=== PATIENT | female | born 1930 | race Caucasian/White ===

== ENCOUNTER 2016-10-05 07:05 | Emergency (ER) | payer MEDICARE, MEDICAID ==
[2016-10-05 07:18] VITALS: TEMP 97.6; O2SAT 97
--- NOTE | 2016-10-05 07:24 | ED.PDOC ---
History of Present Illness - General Chief Complaint: Trauma Stated Complaint: fall Time Seen by Provider: 10/05/16 07:09 Source: patient, RN notes reviewed, Vital Signs reviewed, EMS Exam Limitations: no limitations - History of Present Illness Initial Comments: Patient reports she got up to go to the bathroom, lost her balance and feel. Reports she hit her head on the icebox. She thinks everything else she hit was soft. She is having L lower rib pain that is worse with breathing and movement. No LOC. Timing/Duration: 1/2 hour Severity: moderate Improving Factors: immobilization Worsening Factors: movement Associated Symptoms: chest pain, headaches Allergies/Adverse Reactions: Allergies Ciprofloxacin [From Cipro] Allergy (Severe, Verified 08/17/16 16:57) Other swelling of lips Cephalosporins Allergy (Unknown, Verified 08/17/16 16:57) Unknown Codeine Allergy (Unknown, Verified 08/17/16 16:57) Unknown Acetazolamide [From Diamox Sequels] Allergy (Verified 08/17/16 16:57) Vomitting Ceftriaxone Allergy (Verified 10/05/16 07:19) Penicillins Allergy (Verified 10/05/16 07:19) Home Medications: Ambulatory Orders Donepezil Hydrochloride [Aricept] 10 mg PO BEDTIME 03/03/16 Levothyroxine Sodium [Synthroid] 75 mcg PO ACBK 03/03/16 Pramipexole Dihydrochloride [Mirapex] 0.25 mg PO BEDTIME 03/03/16 Pantoprazole Sodium 40 mg PO DAILY 05/23/16 Magnesium Hydroxide [Milk Of Magnesia] 30 ml PO DAILY PRN 08/22/16 Ondansetron HCl [Zofran] 4 mg PO Q6HR PRN 08/22/16 Tramadol HCl [Ultram] 50 mg PO Q4H PRN #60 tab 08/24/16 amLODIPine BESYLATE [Norvasc] 5 mg PO BEDTIME #30 tab 08/24/16 Citalopram Hydrobromide 10 mg PO DAILY 10/05/16 Review of Systems - Review of Systems Constitutional: States: no symptoms reported. Denies: chills, diaphoresis, fever, malaise, weakness EENTM: States: no symptoms reported Respiratory: States: short of breath - due to rib pain. Denies: cough, stridor , wheezing Cardiology: States: no symptoms reported Gastrointestinal/Abdominal: States: no symptoms reported Musculoskeletal: States: see HPI. Denies: neck pain Skin: States: no symptoms reported Neurological: States: headache. Denies: numbness, paresthesia, pre-existing deficit, seizure, tingling, tremors, weakness Endocrine: States: no symptoms reported Past Medical History (General) - Patient Medical History Hx Seizures: No Hx Stroke: Yes Hx Dementia: No Hx Asthma: No Hx of COPD: Yes Hx Cardiac Disorders: Yes - [place] Hx Congestive Heart Failure: Yes Hx Pacemaker: No Hx Hypertension: Yes - current Hx Thyroid Disease: Yes Hx Diabetes: No Hx Gastroesophageal Reflux: Yes Hx Renal Disease: No Hx Cancer: Yes - Uterine Hx of HIV: No Hx Hepatitis C: No Hx MRSA: No - Vaccination History Hx Tetanus, Diphtheria Vaccination: No Hx Influenza Vaccination: Yes Hx Pneumococcal Vaccination: Yes - Social History Hx Tobacco Use: Yes - Quit in 1983 Hx Chewing Tobacco Use: No Hx Alcohol Use: No Hx Substance Use: No Hx Substance Use Treatment: No Hx Depression: No Hx Physical Abuse: No Hx Emotional Abuse: No Hx Suspected Abuse: No - Activities of Daily Living Senior Living/Assisted Living (if applicable):: [facility] - Female History Patient : No Family Medical History - Family History Father Family History: Unknown Living Status: Mother Family History: Unknown Living Status: Physical Exam - Physical Exam General Appearance: Alert, Frail, Well Groomed, Well Hydrated, Other - In obvious pain Eye Exam: bilateral normal Ears, Nose, Throat: normal ENT inspection Neck: non-tender, full range of motion, supple, normal inspection Respiratory: lungs clear, decreased breath sounds, other - Chest wall tender over L lower ribs. Splinting and not breathing deeply due to pain. 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 Copy, Patient Portal Self Enrollment Instructions: DI for Rib Fracture, Contusion Activity: ambulate only with walker Home Medications: Ambulatory Orders Donepezil Hydrochloride [Aricept] 10 mg PO BEDTIME 03/03/16 Levothyroxine Sodium [Synthroid] 75 mcg PO ACBK 03/03/16 Pramipexole Dihydrochloride [Mirapex] 0.25 mg PO BEDTIME 03/03/16 Pantoprazole Sodium 40 mg PO DAILY 05/23/16 Magnesium Hydroxide [Milk Of Magnesia] 30 ml PO DAILY PRN 08/22/16 Ondansetron HCl [Zofran] 4 mg PO Q6HR PRN 08/22/16 Tramadol HCl [Ultram] 50 mg PO Q4H PRN #60 tab 08/24/16 amLODIPine BESYLATE [Norvasc] 5 mg PO BEDTIME #30 tab 08/24/16 Citalopram Hydrobromide 10 mg PO DAILY 10/05/16 Additional Instructions: Take Tramadol Q6 hours. Also, 10 deep breaths every hour to help prevent pneumonia.
--- NOTE | 2016-10-05 07:59 | CT ---
EXAM DESCRIPTION: CT HEAD WITHOUT IV CONTRAST CLINICAL HISTORY: 86 y/o F, Pain/hematoma s/p fall COMPARISON: August 22, 2016 TECHNIQUE: Head CT was performed without IV contrast. FINDINGS: There is no acute intracranial hemorrhage. Generalized age-appropriate volume loss is noted with ex vacuo prominence of the ventricular system. There is no posterior fossa lesion. Chronic ischemic changes are noted in the periventricular white matter, but there is no cortical edema or sulcal effacement to suggest acute cortical infarct. The basal ganglia are unremarkable. A cephalohematoma is noted over the right occipital parietal region. There is no calvarial fracture or radiopaque foreign body. Visualized paranasal sinuses unremarkable. Vascular calcifications are present. IMPRESSION: Right posterior soft tissue swelling, but no acute intracranial abnormality. Vascular calcifications, chronic ischemic changes and age appropriate volume loss. Electronically signed by: Fidel Bunn DO 10/05/2016 07:57
--- NOTE | 2016-10-05 08:02 | RAD ---
EXAM DESCRIPTION: XR CHEST 2 VIEWS CLINICAL HISTORY: L lower rib pain s/p fall COMPARISON: March 05, 2016 FINDINGS: The cardiomediastinal silhouette is unremarkable. There is subsegmental atelectasis or scarring in both lung bases, unchanged from the patient's previous exam. No pulmonary contusion or pleural fluid collection is seen. Mild chronic blunting of the left costophrenic angle is also stable from the prior exam and likely represents pleural thickening or scarring. Prominence of the retrosternal clear space suggests COPD. No displaced rib fracture or pneumothorax. IMPRESSION: COPD with probable subsegmental atelectasis or scarring in the lung bases, worse on the left side. No displaced rib fracture, pneumothorax or other traumatic intrathoracic abnormality. Electronically signed by: Fidel Bunn DO 10/05/2016 08:00
--- NOTE | 2016-10-05 08:03 | RAD ---
EXAM DESCRIPTION: XR RIBS 2 VIEWS UNILATERAL CLINICAL HISTORY: L lower rib pain s/p fall COMPARISON: None available FINDINGS: Three views of the left-sided ribs show no displaced left-sided rib fracture. There is subsegmental atelectasis or scarring in both lung bases. Vascular calcifications are noted. There are degenerative changes in the thoracolumbar spine at several levels including mild convex rightward scoliosis. IMPRESSION: Degenerative changes and vascular calcifications, but no apparent left-sided rib fracture or other acute intrathoracic abnormality. Electronically signed by: Fidel Bunn DO 10/05/2016 08:02
[2016-10-05] MEDS ORDERED: traMADol HCL 50 MG TAB PO ONE (08:20)
[2016-10-05] MEDS ORDERED: POVIDONE IODINE 10 % 15 ML UD TOP ONE (08:20)
[2016-10-05 08:57] VITALS: BP 186/84
== END 2016-10-05 08:57 ==
LOC: ER 07:05
DX: S00.03XA Contusion of scalp, initial encounter (principal); S22.32XA Fracture of one rib, left side, initial encounter for closed fracture; I25.2 Old myocardial infarction; J44.9 Chronic obstructive pulmonary disease, unspecified; I11.0 Hypertensive heart disease with heart failure; I50.9 Heart failure, unspecified; E07.9 Disorder of thyroid, unspecified; Z88.0 Allergy status to penicillin; Z88.3 Allergy status to other anti-infective agents; K21.9 Gastro-esophageal reflux disease without esophagitis; Z87.891 Personal history of nicotine dependence; Z85.42 Personal history of malignant neoplasm of other parts of uterus; Z79.899 Other long term (current) drug therapy; Z86.73 Personal history of transient ischemic attack (TIA), and cerebral infarction without residual deficits; Z88.6 Allergy status to analgesic agent; W19.XXXA Unspecified fall, initial encounter; Y92.009 Unspecified place in unspecified non-institutional (private) residence as the place of occurrence of the external cause

== ENCOUNTER → 2016-10-08 | Outpatient (CLI) | payer MEDICARE, MEDICAID | LOC: GMAJ 22:30 | PROVIDERS: ATTEND Family Medicine | DX: N39.0 Urinary tract infection, site not specified (principal) ==

== ENCOUNTER 2016-11-19 13:37 | Observation (INO) | payer MEDICARE, MEDICAID ==
[2016-11-19] MEDS ORDERED: ACETAMINOPHEN 325 MG TAB PO ONE (14:07)
[2016-11-19] MEDS ORDERED: IBUPROFEN 200 MG TAB PO ONE (14:07)
--- NOTE | 2016-11-19 14:37 | RAD ---
EXAM DESCRIPTION: Chest,1 View CLINICAL HISTORY: fever COMPARISON: October 05, 2016 FINDINGS: The cardiomediastinal silhouette is unremarkable. There is no airspace consolidation or pleural effusion. Subsegmental atelectasis or scarring is noted in the lung bases, stable. There is no pneumothorax or acute fracture. IMPRESSION: No acute findings. If symptoms persist or worsen, follow-up chest radiograph is suggested. Electronically signed by: Fidel Bunn MD 11/19/2016 2:37 PM IT COMPLIANCE ANALYST
--- NOTE | 2016-11-19 14:40 | RAD ---
EXAM DESCRIPTION: Wrist,Left 2 Views CLINICAL HISTORY: 86 years Female, pain and redness COMPARISON: None. FINDINGS: There is slight cortical offset involving the articular surface of the distal radius. No definite fracture plane is identified. The carpal bones are anatomically aligned. There is probable mild soft tissue swelling. Degenerative changes are noted at the first CMC and triscaphe joints. IMPRESSION: Questionable nondisplaced distal radial fracture of uncertain acuity. If clinically suspicious of acute fracture, 3 view wrist series or CT may be helpful for further evaluation. Degenerative changes, otherwise unremarkable exam. Electronically signed by: Fidel Bunn MD 11/19/2016 2:39 PM CROP INSURANCE CLAIMS ADJUSTER
--- NOTE | 2016-11-19 16:33 | ED.PDOC ---
History of Present Illness - General Chief Complaint: General Time Seen by Provider: 11/19/16 13:46 Source: patient Exam Limitations: no limitations - History of Present Illness Initial Comments: The patient is a 86-year-old female brought into the emergency room for long-term care facility secondary to mild altered mental status along with fever and pain in her left wrist and right foot. The patient historically has had multiple recurrent urinary tract infections. The patient does recognize her family members and knows the hospital that she's and gets confused with answering multiple other questions initially with the fever. No headache and no neck pain. No syncope. She apparently did have a fall a week or 2 ago. She was seen by her primary care doctor yesterday and started on azithromycin for what was felt to be a cellulitis on the dorsal aspect of her right foot. Family reports that the erythema to the dorsal aspect of her right foot does look better today. She has not been drinking well. No definite urinary symptoms but she does not normally have urinary symptoms with UTI. No palpitations. noChest pain. Timing/Duration: 24 hours Severity: moderate Worsening Factors: nothing Associated Symptoms: fever/chills, loss of appetite, malaise, weakness Allergies/Adverse Reactions: Allergies Ciprofloxacin [From Cipro] Allergy (Severe, Verified 08/17/16 16:57) Other swelling of lips Cephalosporins Allergy (Unknown, Verified 08/17/16 16:57) Unknown Codeine Allergy (Unknown, Verified 08/17/16 16:57) Unknown Acetazolamide [From Diamox Sequels] Allergy (Verified 08/17/16 16:57) Vomitting Ceftriaxone Allergy (Verified 10/05/16 07:19) Penicillins Allergy (Verified 10/05/16 07:19) Home Medications: Ambulatory Orders Donepezil Hydrochloride [Aricept] 10 mg PO BEDTIME 03/03/16 Levothyroxine Sodium [Synthroid] 75 mcg PO DAILY 03/03/16 Pramipexole Dihydrochloride [Mirapex] 0.25 mg PO BEDTIME 03/03/16 Pantoprazole Sodium 40 mg PO DAILY 05/23/16 Magnesium Hydroxide [Milk Of Magnesia] 30 ml PO DAILY PRN 08/22/16 Ondansetron HCl [Zofran] 4 mg PO Q6HR PRN 08/22/16 amLODIPine BESYLATE [Norvasc] 5 mg PO BEDTIME #30 tab 12/06/16 Citalopram Hydrobromide 10 mg PO DAILY 10/05/16 Memantine HCl-Donepezil HCl [Namzaric 7 & 14 & 21 &28 -10 mg] 1 cap PO DAILY 12/03 Tramadol HCl [Ultram] 50 mg PO Q6HR PRN 11/19/16 Review of Systems - Review of Systems Constitutional: States: fever, malaise, weakness EENTM: States: no symptoms reported Respiratory: States: cough - mild Cardiology: States: no symptoms reported Gastrointestinal/Abdominal: States: nausea - mild Genitourinary: States: no symptoms reported Musculoskeletal: States: muscle pain - generalized body aches Skin: States: see HPI Neurological: States: other - mild confusion here today. Poor focus. No headaches. She does have generalized weakness. Endocrine: States: no symptoms reported All other Systems: No Change from Baseline Past Medical History (General) - Patient Medical History Hx Seizures: No Hx Stroke: Yes Hx Dementia: No Hx Asthma: No Hx of COPD: Yes Hx Cardiac Disorders: Yes - [place] Hx Congestive Heart Failure: Yes Hx Pacemaker: No Hx Hypertension: Yes - current Hx Thyroid Disease: Yes Hx Diabetes: No Hx Gastroesophageal Reflux: Yes Hx Renal Disease: No Hx Cancer: Yes - Uterine Hx of HIV: No Hx Hepatitis C: No Hx MRSA: No - Vaccination History Hx Tetanus, Diphtheria Vaccination: No Hx Influenza Vaccination: Yes Hx Pneumococcal Vaccination: Yes - Social History Hx Tobacco Use: Yes - Quit in 1983 Hx Chewing Tobacco Use: No Hx Alcohol Use: No Hx Substance Use: No Hx Substance Use Treatment: No Hx Depression: No Hx Physical Abuse: No Hx Emotional Abuse: No Hx Suspected Abuse: No - Female History Patient : No Family Medical History - Family History Father Family History: Unknown Living Status: Mother Family History: Unknown Living Status: Physical Exam - Physical Exam General Appearance: Alert, No apparent distress, Other - mild confusion Eye Exam: bilateral normal Ears, Nose, Throat: normal ENT inspection, normal pharynx Neck: non-tender, full range of motion, supple, normal inspection Respiratory: chest non-tender, lungs clear, normal breath sounds, no respiratory distress, no accessory muscle use Cardiovascular/Chest: normal peripheral pulses, no edema, other - regular rate Peripheral Pulses: radial,right: 2+, radial,left: 2+, dorsalis pedis,right: 2+, dorsalis pedis,left: 2+ Gastrointestinal/Abdominal: non tender, soft Rectal Exam: deferred Back Exam: normal inspection Extremity: normal range of motion, no pedal edema, no calf tenderness, normal capillary refill, other - the patient does have erythema surrounding her left wrist and pain with palpation and with movement of the wrist. She is neurovascularly preserved distally. Neurologic: alert, other - mildly disoriented Skin Exam: normal color Progress - Progress Progress: 11/19/16 16:36 the patient is an 86-year-old female with a multitude of chronic medical problems presenting to the emergency room secondary to fever with associated delirium along with left wrist and right foot discomfort. The patient is mildly dehydrated and is going to receive some IV fluids. She is also going to be started on IV clindamycin as a broad-spectrum antibiotic. She may have the start of a small urinary tract infection based on the urinalysis. The patient is mentating normally after the fever is controlled. There is apparently a significant cellulitis of the right foot that does need to be followed. For now continue the azithromycin started by her primary care doctor. Monitor the patient overnight to make sure no new symptoms develop. Control fevers. It is possible that the fever may not be due to the issues listed above and further symptoms may develop to point to a different source. The patient is very frail and warrants monitoring for the next 24 hours to make sure she does not deteriorate. 11/19/16 16:47 - Results/Orders Results/Orders: Laboratory Tests 11/19/16 11/19/16 14:24 15:45 WBC 16.3 H RBC 4.28 Hgb 11.4 L Hct 36.7 MCV 85.8 MCH 26.6 L MCHC 31.2 L RDW 16.7 H Plt Count 300 MPV 9.6 Absolute Neuts (auto) Not Reportable Absolute Lymphs (auto) Not Reportable Absolute Monos (auto) Not Reportable Absolute Eos (auto) Not Reportable Neutrophils % Not Reportable Neutrophils % (Manual) 78.0 Lymphocytes % Not Reportable Lymphocytes % (Manual) 8.0 Monocytes % Not Reportable Monocytes % (Manual) 12.0 Eosinophils % Not Reportable Basophils % Not Reportable Band Neutrophils 1.0 Platelet Estimate Normal RBC Morphology Normal rbc morph PT 13.9 H INR 1.230 PTT (SP) 27.1 Sodium 137 Potassium 4.1 Chloride 103 Carbon Dioxide 24 Anion Gap 14.1 BUN 23 H Creatinine 1.20 BUN/Creatinine Ratio 19.2 Random Glucose 123 H Serum Osmolality 278.9 Calcium 9.0 Total Bilirubin 0.6 AST 17 ALT < 8 L Alkaline Phosphatase 76 Serum Total Protein 7.2 Albumin 3.6 Globulin 3.6 H Albumin/Globulin Ratio 1.0 L Urine Color Yellow Urine Appearance Cloudy Urine pH 5.5 Ur Specific [place] 1.025 Urine Protein 30 Urine Glucose (UA) Negative Urine Ketones Negative Urine Blood Negative Urine Nitrite Negative Urine Bilirubin Negative Urine Urobilinogen 1.0 Ur Leukocyte Esterase Negative Urine RBC 0 Urine WBC 3-5 H Ur Epithelial Cells 1-3 Amorphous Sediment 2+ Urine Bacteria 4+ H chest x-ray shows no definitive infiltrate. Rapid flu is negative. Departure - Departure Clinical Impression: Delirium due to another medical condition, Cystitis, Dehydration, mild Cellulitis Qualifiers: Site of cellulitis: extremity Site of cellulitis of extremity: lower extremity Laterality: right Qualifier Code: (L03.115) Cellulitis of right lower limb Fracture, radius Qualifiers: Encounter type: initial encounter Radius location: distal Fracture type: closed Fracture alignment: nondisplaced Laterality: left Disposition: Admit Patient Home Medications: Ambulatory Orders Donepezil Hydrochloride [Aricept] 10 mg PO BEDTIME 03/03/16 Levothyroxine Sodium [Synthroid] 75 mcg PO DAILY 03/03/16 Pramipexole Dihydrochloride [Mirapex] 0.25 mg PO BEDTIME 03/03/16 Pantoprazole Sodium 40 mg PO DAILY 05/23/16 Magnesium Hydroxide [Milk Of Magnesia] 30 ml PO DAILY PRN 08/22/16 Ondansetron HCl [Zofran] 4 mg PO Q6HR PRN 08/22/16 amLODIPine BESYLATE [Norvasc] 5 mg PO BEDTIME #30 tab 08/24/16 Citalopram Hydrobromide 10 mg PO DAILY 10/05/16 Memantine HCl-Donepezil HCl [Namzaric 7 & 14 & 21 &28 -10 mg] 1 cap PO DAILY 12/03 Tramadol HCl [Ultram] 50 mg PO Q6HR PRN 11/19/16 Decision To Admit - Decistion To Admit Decision to Admit Reason: Medical Nature Decision to Admit Date: 11/19/16 Decision to Admit Time: 16:52
[2016-11-19] MEDS ORDERED: SODIUM CHLORIDE 0.9% 1000ML 750 ML IVS ONE (16:47)
[2016-11-19] MEDS ORDERED: CLINDAMYCIN IV 600MG 600 MG in PREMIX BAG 1 BAG IVPB ONE (16:47)
[2016-11-19] MEDS ORDERED: CLINDAMYCIN IV 600MG 50 ML IVPB ONE (17:22)
--- NOTE | 2016-11-19 18:57 | HP ---
SUPERVISING PHYSICIAN: BRYAN WILBURN MD CHIEF COMPLAINT: FEVER HISTORY OF PRESENT ILLNESS: This is an 86 year-old female who was brought into the Emergency Room from [facility] for mild altered mental status along with fever. She also complained of some pain in her left wrist and right foot. She has a significant history of repeat and recurrent urinary tract infections. The family states that she does seem to be more confused than normal. She has had no syncope or dizziness. She did have a fall about a week or so ago. She was seen by her primary care physician on the day prior to admission due to a cellulitis that was on her right foot. The family reports that the erythema and edema have improved and she has complained about it less today. In the Emergency Room, labs were done and her white count was 16.3 and her hemoglobin and hematocrit were 11.4 and 36.7. Her chemistries were basically within normal limits and her chest x-ray showed no acute cardiopulmonary abnormalities but if symptoms persist it was recommended for followup. Her flu was negative. Her urinalysis showed urine WBCs of 3 to 5 and urine bacteria 4+. She does have a long history of recurrent urinary tract infections. She was given azithromycin in the office by her physician, Dr. Wilburn. In the Emergency Room she received some Clindamycin IV and some fluids. Her left wrist was x-rayed and she was found to have a questionable nondisplaced distal radial fracture of uncertain acuity. If clinically suspicious for a fracture, a 3-view wrist series or CT may be helpful for further evaluation. A splint was placed on the wrist. I was called for admission to the hospital. PAST MEDICAL HISTORY: 1. Recurrent urinary tract infections with most recently being an E. coli with multiple resistance. 2. History of renal insufficiency, stage 3. . 3. 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 4. Chronic atrial fibrillation.. 5. Alzheimer's dementia. 6. Hypothyroidism.. 7. Hypertension.. 8. History of Raynaud's syndrome. 9. Restless leg syndrome. 10. History of diverticulosis. 11. Subdural hemorrhage in October 2015. 12. History of gastroesophageal reflux disease. PAST SURGICAL HISTORY: 1. Right carotid stent. 2. Coronary stents. 3. Partial thyroidectomy due to a goiter. 4. Right shoulder surgery. 5. Hysterectomy and bilateral oophorectomy. CURRENT MEDICATIONS: Per the EMR and awaiting verification. ALLERGIES: FLUOROQUINOLONE, CEPHALOSPORIN, CODEINE, ACETAZOLAMIDE FAMILY HISTORY: Noncontributory. SOCIAL HISTORY: The patient lives in [facility]. She is retired. She has a history of smoking but has quit for 32 years. There is no ETOH or illicit drug use. REVIEW OF SYSTEMS: Limited due to patient's condition. She did say that her left wrist hurts and she complains of some coughing but other than that, she has a difficult time answering questions. PHYSICAL EXAMINATION: VITAL SIGNS: She is afebrile since admission to the Floor, although she did have 101.1 fever on admission to the Emergency Room. Her heart rate is 88, blood pressure is 118/66, respiratory rate 20, 02 saturation is 92% GENERAL: This is an 86 year-old female patient who is lying in her hospital bed. She is in no acute distress. HEENT: Normocephalic and atraumatic. Pupils are equal and reactive. Oropharynx is clear. Oral mucous membranes are moist. NECK: Supple without masses. There is no jugular venous distention. CHEST: Essentially clear to auscultation. There is equal rise and fall with inspiration and expiration. CARDIOVASCULAR: Regular rate and rhythm. ABDOMEN: Soft, nondistended, non-tender. Bowel sounds are positive. EXTREMITIES: No cyanosis, clubbing, or edema. NEUROLOGIC: Awake but somewhat lethargic. She does answer simple yes/no questions appropriately. Laboratory and films are per the history of present illness. ASSESSMENT: 1. Fever of unknown origin. 2. Altered mental status most likely secondary to #1. 3. Cellulitis of the right foot. 4. Urinary tract infection with a history of recurrent urinary tract infections. 5. Left wrist fracture most likely from fall approximately 1 to 2 weeks ago. 5. History of congestive heart failure with systolic and diastolic component and a 55% ejection fraction from 2012. 6. History of chronic atrial fibrillation. 7. History of Alzheimer's dementia. 8. Hypothyroidism. 9. Hypertension. PLAN: We will admit the patient for observation. We will continue to monitor her closely. I will repeat her labs in the morning as well as another chest x- ray. I have ordered a CRP. She does have a splint on her left wrist. I am not quite sure why she has had this elevated fever or the confusion but she has been started on some clindamycin in the Emergency Room so I will continue that for now. Hopefully her symptoms will clear up or we will be able to find the source of the fever. Meanwhile, we will continue to monitor the patient closely and treat as medically appropriate. Dr. Wilburn is the collaborating physician available for consultation. #[id number] [facility]
[2016-11-20] MEDS ORDERED: LEVALBUTEROL NEBS 1.25 MG/3 ML VIAL NEB PRN (00:13)
[2016-11-20] MEDS ORDERED: ACETAMINOPHEN 325 MG TAB PO PRN (00:13)
[2016-11-20] MEDS ORDERED: CLINDAMYCIN IV 600MG 50 ML IVPB ONE ×2 (00:25→06:05)
[2016-11-20] MEDS: SODIUM CHLORIDE 0.9% (FLUSH) 10 ML SYG IV PRN ×2 (00:26→06:11)
[2016-11-20] MEDS: CLINDAMYCIN INJ (VIAL) 600 MG in SODIUM CHLORIDE 0.9% 50ML 50 ML IVPB SCH ×2 (00:27→06:11)
[2016-11-20] MEDS ORDERED: IV SET AND CAP CHANGE INJ INJ SCH (00:30)
[2016-11-20] MEDS ORDERED: SODIUM CHLORIDE 0.9% (FLUSH) 10 ML SYG IV SCH (09:00)
--- NOTE | 2016-11-20 09:59 | RAD ---
PROCEDURE: XR CHEST 1 VIEW HISTORY: fever COMPARISON: 11/19/2016 TECHNIQUE: Single projection of the chest was done. FINDINGS: Note is again made of underlying changes of COPD and minimal subsegmental atelectasis/scarring in the bilateral lung bases . There are no discrete airspace infiltrates, pneumothoraces or pleural effusions. The pulmonary vascularity is normal. The cardiomediastinal contour is stable . IMPRESSION: There is no acute pleural-parenchymal process seen in the imaged lung parks. Note is again made of underlying changes of COPD and minimal subsegmental atelectasis/scarring in the bilateral lung bases . Location of Interpretation: Teleradiology Electronically signed by: Rom Ferrell MD 11/20/2016 9:58 AM LAMP SHADE ASSEMBLER
[2016-11-20] MEDS ORDERED: SODIUM CHLORIDE 0.45% 1000ML 500 ML IVS PRN (11:58)
[2016-11-20] MEDS ORDERED: ALBUTEROL SULFATE 2.5 MG/3 ML VIAL NEB PRN (12:23)
[2016-11-20] MEDS: CLINDAMYCIN IV 600MG 50 ML IVPB SCH ×2 (12:32→18:40)
--- NOTE | 2016-11-20 12:36 | PCM.CORE ---
Physician DVT/VTE - Prophylaxis Currently: Patient already on anticoagulation therapy - Nurse DVT Assessment & Total Each Risk Factor Represents 3 Points: Age over 75 years DVT Assessment Score: 3 - 3-4 High Risk Treatments: Early Ambulation *, Sequential Compression Device
--- NOTE | 2016-11-20 13:13 | PN ---
DATE: 11/20/16 SUPERVISING PHYSICIAN: Allen Wilburn M.D. SUBJECTIVE: The patient is sitting up in her bed. She is visiting with family. She has complaints of some increased coughing but otherwise feels much improved since yesterday. Her foot does not hurt like it had been. She has been wearing her brace on her wrist and that seems to be improved as well. She denies any chest pain, wheezing, abdominal pain, nausea or vomiting, diarrhea, dizziness or headache. OBJECTIVE: VITAL SIGNS: She is afebrile, pulse rate 72, blood pressure 149/80, respiratory rate 18, O2 sat 95% on 2 liters nasal cannula. RESPIRATORY: Bilateral rhonchi throughout, slightly diminished at the bases. CARDIAC: Regular rate and rhythm. ABDOMEN: Soft, nondistended, non-tender. Bowel sounds are positive. EXTREMITIES: The right foot, there is no erythema of edema noted today. It is still slightly tender to palpation, but otherwise much improved since yesterday. NEUROLOGIC: She is awake, alert and oriented times three. LABORATORY: WBCs have improved from 16.3 to 11.8 today, hemoglobin and hematocrit are 10.6 and 33.6. CRP from last night is 15.4, BUN 29, creatinine is slightly elevated from 1.2 yesterday to 1.51 today. Preliminary blood cultures are negative to date. Urine culture is pending. Chest x-ray shows underlying changes of COPD and some subsegmental atelectasis/scarring in the bilateral lung bases which were not noted on the chest x-ray report from yesterday. All other labs and films have been reviewed via the EMR. ASSESSMENT: 1. Bilateral lower lobe pneumonia per radiographic studies that were on chest x-ray today and were not noted on previous days report. 2. Cellulitis of the right foot that was treated on the day prior to admission in her primary care provider's office, Dr. Wilburn. 3. Fever of unknown origin that most likely was due to number 1 and number 2. 4. Altered mental status that has mostly resolved and most likely secondary to the fever. 5. Question urinary tract infection with pending urine cultures. She does have a history of frequent urinary tract infections. 6. Left wrist fracture most likely from fall approximately 1 to 2 weeks ago presently wearing a brace. 7. 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 8. History of chronic atrial fibrillation. 9. History of Alzheimer's dementia. 10. Hypothyroidism. 11. Hypertension. PLAN: We will continue her present antibiotics of Clindamycin as that should give good coverage for pneumonia. I have added incentive spirometry and good pulmonary hygiene. I have also added some Align for some probiotics. Her creatinine is slightly elevated so I am going to give her a half liter of some IV fluids. We are still waiting for her urine culture, but at this point the pneumonia along with the cellulitis that have been the cause of most of her problems as her clinical response is improving very well. I have also added some breathing treatments. I have repeated her lab and her chest x-ray tomorrow. Hopefully if she continues to improve, she will be able to go home tomorrow or the next day. Otherwise we will continue to monitor the patient closely and followup as needed. #[id number] [facility]
[2016-11-20] MEDS: CITALOPRAM HBR 20 MG TAB PO SCH (13:17)
[2016-11-20] MEDS: ENOXAPARIN SODIUM 30 MG/0.3 ML SYG SUBCU SCH (13:18)
[2016-11-20] MEDS: ALBUTEROL SULFATE 2.5 MG/3 ML VIAL NEB SCH ×2 (16:10→19:46)
[2016-11-20] MEDS: traMADol HCL 50 MG TAB PO PRN (19:28)
[2016-11-20] MEDS ORDERED: PRAMIPEXOLE 0.25 MG TAB PO ONE (19:50)
[2016-11-20] MEDS ORDERED: guaiFENesin ER TAB 600 MG TAB ONE (19:50)
[2016-11-20] MEDS ORDERED: BIFIDOBACTERIUM INFANTIS 4 MG CAP ONE (19:51)
[2016-11-20] MEDS ORDERED: LEVOTHYROXINE SODIUM 0.075 MG TAB ONE (19:51)
[2016-11-20] MEDS ORDERED: PANTOPRAZOLE SODIUM TAB 40 MG PO ONE (19:51)
[2016-11-20] MEDS ORDERED: amLODIPine BESYLATE 5 MG TAB ONE (19:51)
[2016-11-20] MEDS ORDERED: DONEPEZIL HCL 5 MG TAB ONE (19:52)
[2016-11-20] MEDS: PRAMIPEXOLE 0.25 MG TAB PO SCH (20:39)
[2016-11-20] MEDS: SODIUM CHLORIDE 0.9% (FLUSH) 10 ML SYG IV SCH (20:39)
[2016-11-20] MEDS: amLODIPine BESYLATE 5 MG TAB PO SCH (20:39)
[2016-11-20] MEDS: guaiFENesin ER TAB 600 MG TAB PO SCH (20:39)
[2016-11-20] MEDS: DONEPEZIL HCL 5 MG TAB PO SCH (20:39)
[2016-11-20] MEDS: BIFIDOBACTERIUM INFANTIS 4 MG CAP PO SCH (20:39)
[2016-11-21] MEDS: SODIUM CHLORIDE 0.9% (FLUSH) 10 ML SYG IV PRN ×2 (05:38)
[2016-11-21] MEDS: CLINDAMYCIN IV 600MG 50 ML IVPB SCH ×4 (05:38→17:38)
[2016-11-21] MEDS: PANTOPRAZOLE SODIUM TAB 40 MG PO SCH (06:07)
[2016-11-21] MEDS: LEVOTHYROXINE SODIUM 0.075 MG TAB PO SCH (06:07)
[2016-11-21] MEDS: BIFIDOBACTERIUM INFANTIS 4 MG CAP PO SCH ×2 (08:42→21:04)
[2016-11-21] MEDS: guaiFENesin ER TAB 600 MG TAB PO SCH ×2 (08:43→21:04)
[2016-11-21] MEDS: CITALOPRAM HBR 20 MG TAB PO SCH (08:43)
[2016-11-21] MEDS: SODIUM CHLORIDE 0.9% (FLUSH) 10 ML SYG IV SCH ×2 (08:44→21:06)
[2016-11-21] MEDS: ENOXAPARIN SODIUM 30 MG/0.3 ML SYG SUBCU SCH (08:50)
[2016-11-21] MEDS ORDERED: NON-FORMULARY MEDICATION 1 EA MIS (Memantine Hcl-Donepezil Hcl [Namzaric 28-10 Mg] 1 CAP) PO SCH (09:00)
[2016-11-21] MEDS: ALBUTEROL SULFATE 2.5 MG/3 ML VIAL NEB SCH ×4 (09:10→19:50)
[2016-11-21] MEDS: MEMANTINE HCL DONEPEZIL HCL PO SCH (09:10)
--- NOTE | 2016-11-21 10:23 | RAD ---
PROCEDURE: XR CHEST 1 VIEW HISTORY: pna COMPARISON: 11/20/2016 TECHNIQUE: Single projection of the chest was done. FINDINGS: Note is again made of underlying changes of COPD and minimal subsegmental atelectasis/scarring in the bilateral lung bases, unchanged . There are no discrete airspace infiltrates, pneumothoraces or pleural effusions. The pulmonary vascularity is normal. The cardiomediastinal contour is stable . IMPRESSION: Note is again made of underlying changes of COPD and minimal subsegmental atelectasis/scarring in the bilateral lung bases, unchanged . There is no acute pleural-parenchymal process seen in the imaged lung parks. 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
[2016-11-21] MEDS: traMADol HCL 50 MG TAB PO PRN ×2 (10:54→21:05)
--- NOTE | 2016-11-21 15:17 | PN ---
DATE: 11/21/16 SUBJECTIVE: The patient is sitting up in the bed fairly alert. She admits to not being able to walk hardly at all for the last week to 10 days. Family is also present and substantiate this weakness and instability factor. She has fallen recently and had some broken ribs. She has discomfort in her left leg and an old sore injury on her right foot showing some improvement with her current treatment. No more fever, but she does have cough. She is much more alert now than before. OBJECTIVE: Afebrile, pulse 70, blood pressure 87/53, pulse oximetry 93% on nasal cannula. The patient is fairly awake and alert. LUNGS: Have some rales more prominent on the right base versus the left with some slight clearing after repeat deep breathing noted. She needs and is encouraged to adequately utilize the incentive spirometry for deep breathing exercises. HEART: Tones regular though somewhat distant. ABDOMEN: Soft. Chest x-ray today does reveal persistence of the bibasilar atelectasis versus scarring currently being treated with specialized treatment. ASSESSMENT: 1. Chronic obstructive pulmonary disease with moderate acute exacerbation. 2. Bilateral basilar pneumonia with radiographic evidence and showing some clinical stabilization. 3. Acute febrile illness now showing improvement as treatment has continued. 4. Slight cellulitis infection dorsum of the right foot showing some improvement. 5. Altered mental status possibly secondary to the fever state on admission. 6. Urine cultures are negative yet evidence shows pyuria and bacteriuria possibly responding to the treatment already started. 7. Recent left wrist fracture apparently from a fall a few weeks ago. 8. History of falls with rib fractures. 9. History of congestive heart failure with systolic/diastolic component and ejection fraction of 55% in 2012. 10. History of chronic atrial fibrillation. 11. History of dementia. 12. History of hypothyroidism on supplementation. 13. History of hypertension though now with low blood pressure. PLAN: Will continue with current treatment with repeat followup in the morning. Physical Therapy has requested to see the patient to evaluate the safety of ambulation and transferring, and to help reduce fall risk. Will continue with SCD DVT prophylaxis. Anticipate evaluation in the morning and transfer back to [facility] for continued rehabilitation, supportive care and penitentiary care. #[id number] [facility] SERVICESGerson
[2016-11-21] MEDS: amLODIPine BESYLATE 5 MG TAB PO SCH (21:04)
[2016-11-21] MEDS: DONEPEZIL HCL 5 MG TAB PO SCH (21:04)
[2016-11-21] MEDS: PRAMIPEXOLE 0.25 MG TAB PO SCH (21:04)
[2016-11-22] MEDS: CLINDAMYCIN IV 600MG 50 ML IVPB SCH ×3 (00:11→11:30)
[2016-11-22] MEDS: PANTOPRAZOLE SODIUM TAB 40 MG PO SCH (05:53)
[2016-11-22] MEDS: LEVOTHYROXINE SODIUM 0.075 MG TAB PO SCH (05:53)
[2016-11-22] MEDS: ALBUTEROL SULFATE 2.5 MG/3 ML VIAL NEB SCH ×2 (07:19→13:22)
[2016-11-22] MEDS: BIFIDOBACTERIUM INFANTIS 4 MG CAP PO SCH (10:04)
[2016-11-22] MEDS: CITALOPRAM HBR 20 MG TAB PO SCH (10:04)
[2016-11-22] MEDS: ENOXAPARIN SODIUM 30 MG/0.3 ML SYG SUBCU SCH (10:04)
[2016-11-22] MEDS: guaiFENesin ER TAB 600 MG TAB PO SCH (10:05)
[2016-11-22] MEDS: MEMANTINE HCL DONEPEZIL HCL PO SCH (10:05)
[2016-11-22] MEDS: SODIUM CHLORIDE 0.9% (FLUSH) 10 ML SYG IV SCH (10:06)
[2016-11-22] MEDS ORDERED: MAGNESIUM HYDROXIDE 30 ML UD PO ONE (11:40)
--- NOTE | 2016-11-22 13:50 | DS ---
DISCHARGE DIAGNOSIS: 1. Chronic obstructive pulmonary disease with an acute exacerbation requiring pulmonary hygiene and supportive care. 2. Bibasilar pneumonia with radiographic evidence and showing clinical stabilization as tympanic membranes progressed. 3. Acute febrile illness, showing improvement as treatment continued. 4. Cellulitis of the dorsum of the right foot, treated with antibiotics also used for the pneumonia. 5. Altered mental status, possibly secondary to the fever state on admission. 6. Urine cultures negative, yet evidence of pyuria and bacteruria which possibly responded due to treatment already started. 7. Recent left wrist fracture apparently from a fall a few weeks ago requiring brace to assist with further healing. 8. History of falls with rib fractures. 9. History of congestive heart failure with systolic and diastolic component and a 55% ejection fraction from 2012. 10. History of chronic atrial fibrillation. 11. History of dementia. 12. History of hypothyroidism on supplementation. 13. History of hypertension, though now with low blood pressure noted and adjustments of medicines accordingly. HISTORY OF PRESENT ILLNESS: This 86-year-old, white female was admitted to the hospital from the Emergency Room. She was in [facility] and was brought by EMS to the Emergency Room because of altered mental status along with associated fever. She was complaining of pain in her left wrist and foot from a recent fall a few weeks before. History of significant urinary tract infections was noted and urinalysis did show pyuria and bacteruria, but cultures eventually did not show growth which may have been from ongoing antibiotic usage. In the Emergency Room, she was found to have an elevated white count of 16,300. She started to receive clindamycin IV because of an infection also with cellulitis on the dorsum of her right foot, but also for the presence of the bibasilar pneumonia on chest x-ray. LABORATORY: White count elevated at 16,300 with 78% neutrophils, decreasing to 11,900 with 73% neutrophils. Hemoglobin 10.4, platelet count normal. INR 1.23. Chemistries show potassium 4, BUN 25, creatinine 1.16, glucose 96 on discharge while calcium was 8.5. Liver enzymes unremarkable. C-reactive protein elevated at 15.4. Albumin 3.1. Urinalysis generally clean except for some mild pyuria and 4+ bacteruria, but when culture was obtained, no growth was noted. Blood cultures were negative. Influenza A/B was negative. Chest x- ray showed some persistence of some subsegmental atelectasis and scarring in both lung bases. Further followup is necessary. X-ray of the left wrist showed questionable nondisplaced distal radius fracture requiring splinting to assist with symptom control. HOSPITAL COURSE: The patient was feeling much improved with less cough and no fever at the time of discharge. Her appetite was somewhat improved as well. Still having difficulty ambulating. Physical therapy had tried to get her up, but she is having difficulty walking. Would suggest continued physical therapy with rehabilitation at the assisted after discharge. PLAN: The patient will have further followup with Dr. Wilburn in the next two weeks. Suggest continuation of physical therapy rehabilitation as possible so the patient can reach her maximum benefit of strength to help reduce the risk of falling. She has been falling with broken ribs and wrist, so special totaling to prevent this is important. Continue with wound care to the foot cellulitis. Continue with her home medicines that she previously took. In addition would be clindamycin hydrochloride 150 mg p.o. t.i.d., #24 capsules of the 75 mg size to be sent home. She will continue her previous assisted orders. She is to stay active. Special attention to avoid falls. A trial of physical therapy rehabilitation with strengthening and helping to reduce her fall wrist would be helpful. Encourage deep breathing. Return if not improving. #[id number] [facility]
[2016-11-22 15:16] VITALS: BP 111/63; TEMP 98.4; O2SAT 97
== END 2016-11-22 16:59 ==
LOC: ER 13:37 → MS 18:56 → INTOOBSV 18:56
PROVIDERS: ADMIT Family Medicine; ATTEND Emergency Medicine
DX: J44.1 Chronic obstructive pulmonary disease with (acute) exacerbation (principal); J18.9 Pneumonia, unspecified organism; R50.9 Fever, unspecified; L03.115 Cellulitis of right lower limb; R41.82 Altered mental status, unspecified; N39.0 Urinary tract infection, site not specified; S52.502D Unspecified fracture of the lower end of left radius, subsequent encounter for closed fracture with routine healing; I50.42 Chronic combined systolic (congestive) and diastolic (congestive) heart failure; I48.2 Chronic atrial fibrillation; E03.9 Hypothyroidism, unspecified; I12.9 Hypertensive chronic kidney disease with stage 1 through stage 4 chronic kidney disease, or unspecified chronic kidney disease; N18.3 Chronic kidney disease, stage 3 (moderate); G30.9 Alzheimer's disease, unspecified; F02.80 Dementia in other diseases classified elsewhere, unspecified severity, without behavioral disturbance, psychotic disturbance, mood disturbance, and anxiety; I73.00 Raynaud's syndrome without gangrene; G25.81 Restless legs syndrome; S22.49XD Multiple fractures of ribs, unspecified side, subsequent encounter for fracture with routine healing; W18.39XD Other fall on same level, subsequent encounter; Z66 Do not resuscitate; Z91.81 History of falling; Z79.899 Other long term (current) drug therapy; Z88.0 Allergy status to penicillin; Z88.3 Allergy status to other anti-infective agents; Z88.6 Allergy status to analgesic agent; Z88.8 Allergy status to other drugs, medicaments and biological substances; Z87.19 Personal history of other diseases of the digestive system; Z95.5 Presence of coronary angioplasty implant and graft; Z90.710 Acquired absence of both cervix and uterus; Z87.891 Personal history of nicotine dependence
CPT/HCPCS: 36415 ×4; 71010 ×3; 73100; 80048; 80053 ×2; 81001; 85025 ×3; 85610; 85730; 86140; 87040 ×2; 87086; 87502; 94640 ×8; 94760 ×15; 96361; 96365; 96366 ×3; 96372 ×3; 97161; 97530; 99284; G8978; G8979; G8980; J1650 ×3; J3490 ×12; J7030; J7611 ×8

== ENCOUNTER → 2017-06-22 | Outpatient (CLI) | payer MEDICARE, MEDICAID | END | disposition home or self-care (01) | LOC: GT 07:41 | PROVIDERS: ATTEND Family Medicine | DX: N39.0 Urinary tract infection, site not specified (principal) ==

== ENCOUNTER → 2017-08-01 | Outpatient (CLI) | payer MEDICARE, MEDICAID | END | disposition home or self-care (01) | LOC: GMAJ 18:31 | PROVIDERS: ATTEND Family Medicine | DX: E03.8 Other specified hypothyroidism (principal) ==

== ENCOUNTER → 2017-10-26 | Outpatient (CLI) | payer MEDICARE, MEDICAID | LOC: GT 06:33 | PROVIDERS: ATTEND Family Medicine | DX: R41.82 Altered mental status, unspecified (principal); N39.0 Urinary tract infection, site not specified ==

== ENCOUNTER → 2017-11-07 | Outpatient (CLI) | payer MEDICARE, MEDICAID | LOC: GT 06:26 | PROVIDERS: ATTEND Family Medicine | DX: N39.0 Urinary tract infection, site not specified (principal); R41.82 Altered mental status, unspecified | CPT/HCPCS: 81001; P9603 ==

== ENCOUNTER → 2017-11-29 | Outpatient (CLI) | payer MEDICARE, MEDICAID | LOC: GMAJ 15:18 | PROVIDERS: ATTEND Family Medicine | DX: N39.0 Urinary tract infection, site not specified (principal) ==

== ENCOUNTER → 2017-12-12 | Outpatient (CLI) | payer MEDICARE, MEDICAID | LOC: GT 06:22 | PROVIDERS: ATTEND Family Medicine | DX: N39.0 Urinary tract infection, site not specified (principal) ==

== ENCOUNTER → 2018-01-04 | Outpatient (CLI) | payer MEDICARE, MEDICAID | LOC: GT 09:34 | PROVIDERS: ATTEND Family Medicine | DX: E03.9 Hypothyroidism, unspecified (principal); N18.1 Chronic kidney disease, stage 1; I50.9 Heart failure, unspecified; J44.1 Chronic obstructive pulmonary disease with (acute) exacerbation; R63.4 Abnormal weight loss; I10 Essential (primary) hypertension ==

== ENCOUNTER → 2018-01-13 | Outpatient (CLI) | payer MEDICARE, MEDICAID | LOC: GT 17:23 | PROVIDERS: ATTEND Family Medicine | DX: R30.0 Dysuria (principal) ==